=== PATIENT | female | born 1975 | race Caucasian/White ===

== ENCOUNTER 2018-04-10 22:50 | Emergency (ER) | payer OTHER ==
--- NOTE | 2018-04-10 23:33 | ERPHSYRPT ---
- History of Present Illness Time Seen by Provider: 04/10/18 22:50 Historian: patient Exam Limitations: no limitations Patient Subjective Stated Complaint: pt is alert and oriented. pt brought in via wheelchair. pt states that she was at a [employer] filling out an order form when her chest pain began in the center of her chest. pt denies any nausea, vomiting, lightheadedness, or dizziness. pt pedal pulses regular and strong. heart sounds regular. Triage Nursing Assessment: see above Physician History: MORBIDLY OBESE 42 Y/O WHITE FEMALE PRESENTS WITH CP THAT BEGAN SUDDENLY PRODUCE PRODUCTION TEAM MEMBER CENTRAL CHEST RADIATED STRAIGHT THROUGH TO BACK WITH ASSOCIATED COLD SWEATS. NOT BAD NOW ON ARRIVAL. NO ASA IN LAST 24 HOURS. DOES TAKE A BABY ASA DAILY. PT HAS A H/O PRINZMENTAL ANGINA Timing/Duration: today Activities at Onset: none Quality: sharpness, stabbing Location: central Chest Pain Radiation: back Associated Symptoms: hurts to breathe, diaphoresis Prior Chest Pain/Cardiac Workup: angina, cardiac cath Nitro Today/Relief: 0.4 mg x 4, provided at home, mild relief Aspirin Treatment Today: no aspirin today Allergies/Adverse Reactions: simvastatin [From Zocor] Adverse Reaction (Verified 04/10/18 23:03) Hx Tetanus, Diphtheria Vaccination/Date Given: No Immunizations Up to Date: Yes - Review of Systems Constitutional: No Symptoms Eyes: No Symptoms Ears, Nose, & Throat: No Symptoms Respiratory: Dyspnea, No Cough, No Stridor, No Wheezing Cardiac: Chest Pain, No Palpitations, No Syncope Abdominal/Gastrointestinal: No Symptoms, No Abdominal Pain, No Nausea, No Vomiting, No Diarrhea Genitourinary Symptoms: No Symptoms Musculoskeletal: No Symptoms Skin: No Symptoms Neurological: No Symptoms, No Dizziness, No Focal Weakness, No Gait Changes Psychological: No Symptoms, No Anxiety Endocrine: No Symptoms Hematologic/Lymphatic: No Symptoms All Other Systems: Reviewed and Negative - Past Medical History Pertinent Past Medical History: Yes Neurological History: Migraines, TIA ENT History: No Pertinent History Cardiac History: Congestive Heart Failure, Hypertension, Myocardial Infarction ( [place]), Other Respiratory History: COPD Endocrine Medical History: Diabetes Type II Musculoskeletal History: No Pertinent History GI Medical History: Hernia History: No Pertinent History Psycho-Social History: Anxiety, Depression Female Reproductive Disorders: No Pertinent History - Past Surgical History Past Surgical History: Yes Neuro Surgical History: No Pertinent History Cardiac: No Pertinent History Respiratory: No Pertinent History Gastrointestinal: Cholecystectomy Genitourinary: No Pertinent History Musculoskeletal: No Pertinent History Female Surgical History: Hysterectomy - Social History Smoking Status: Current every day smoker Drug Use: none - Female History Hx Now: No - Nursing Vital Signs Nursing Vital Signs: Initial Vital Signs Temperature 99.6 F 04/10/18 22:50 Pulse Rate 94 H 04/10/18 22:50 Respiratory Rate 18 04/10/18 22:50 Blood Pressure 129/85 04/10/18 22:50 O2 Sat by Pulse Oximetry 96 04/10/18 22:50 Pain Scale Pain Intensity 9 - Physical Exam General Appearance: mild distress, anxiety Eye Exam: PERRL/EOMI, eyes nml inspection Ears, Nose, Throat Exam: normal ENT inspection Neck Exam: normal inspection, non-tender, supple, full range of motion Respiratory Exam: normal breath sounds, chest tenderness, lungs clear, airway intact, No respiratory distress, No diminished breath sounds, No accessory muscle use, No wheezing, No stridor Cardiovascular Exam: regular rate/rhythm, normal heart sounds, normal peripheral pulses Gastrointestinal/Abdomen Exam: soft, normal bowel sounds, No tenderness, No distention, No mass, No guarding, No rebound Pelvic Exam: not done Rectal Exam: deferred Back Exam: normal inspection, normal range of motion Extremity Exam: normal inspection, normal range of motion, pelvis stable Skin Exam: normal color, warm Lymphatic Exam: adenopathy SpO2 Interpretation: normal SpO2: 96 Oxygen Delivery: Room Air - Course Nursing assessment & vital signs reviewed: Yes EKG Interpreted by Me: RATE, Sinus Rhythm, Non-specific ST Changes, Other ( PROBABLE FASCICULAR BLOCK) Ordered Tests: Active Orders 24 hr Category Date Time Status Manager Reporting STAT Care 04/10/18 23:02 Active EKG-ER Only STAT Care 04/10/18 23:01 Active IV Insertion STAT Care 04/10/18 23:01 Active Oxygen-ED Only NASAL CANNULA 2 lpm Care 04/10/18 23:01 Active CHEST 1 VIEW (PORTABLE) Stat Exams 04/10/18 23:45 Taken CBC W DIFF Stat Lab 04/10/18 23:20 Completed CMP Stat Lab 04/10/18 23:20 Completed TROPONIN Q3H Lab 04/10/18 23:20 Completed TROPONIN Q3H Lab 04/11/18 02:15 Ordered TROPONIN Q3H Lab 04/11/18 05:15 Ordered TROPONIN Q3H Lab 04/11/18 08:15 Ordered TROPONIN Q3H Lab 04/11/18 11:15 Ordered Medication Summary Discontinued Medications Generic Name Dose Route Start Last Admin Trade Name Schuyler PRN Reason Stop Dose Admin Levofloxacin 500 mg 04/11/18 00:57 Levofloxacin 250mg Tablet PO 04/11/18 00:58 STAT ONE Morphine Sulfate 4 mg 04/10/18 23:48 04/10/18 23:57 Morphine Sulfate 4 Mg Inj IV 04/10/18 23:49 4 mg STAT ONE Administration Morphine Sulfate Confirm 04/10/18 23:56 Morphine Sulfate 4 Mg Inj Administered 04/10/18 23:57 Dose 4 mg .ROUTE .[email or web address] ONE Lab/Rad Data: Laboratory Result Diagrams 04/10/18 23:20 04/10/18 23:20 Laboratory Results 04/10/18 04/10/18 04/10/18 Range/Units 23:20 23:20 23:20 WBC 18.3 H (4.0-10.5) K/mm3 RBC 4.57 (4.1-5.4) M/mm3 Hgb 11.0 L (12.0-16.0) gm/dl Hct 35.7 (35-47) % MCV 78.1 (78-100) fl MCH 24.0 L (26-32) pg MCHC 30.8 L (32-36) g/dl RDW 20.4 H (11.5-14.0) % Plt Count 335 (150-450) K/mm3 MPV 10.0 H (6-9.5) fl Gran % 73.2 H (36.0-66.0) % Eos # (Auto) 0.20 (0-0.5) Absolute Lymphs (auto) 3.62 (1.0-4.6) Absolute Monos (auto) 1.05 (0.0-1.3) Lymphocytes % 19.8 L (24.0-44.0) % Monocytes % 5.8 (0.0-12.0) % Eosinophils % 1.1 (0.00-5.0) % Basophils % 0.1 (0.0-0.4) % Absolute Granulocytes 13.37 H (1.4-6.9) Basophils # 0.02 (0-0.4) Sodium 139 (137-145) mmol/L Potassium 3.7 (3.5-5.1) mmol/L Chloride 104 (98-107) mmol/L Carbon Dioxide 25 (22-30) mmol/L Anion Gap 13.5 (5-15) MEQ/L BUN 9 (7-17) mg/dL Creatinine 0.65 (0.52-1.04) mg/dL Estimated GFR > 60.0 ML/MIN Glucose 219 H (74-106) mg/dL Calcium 9.5 (8.4-10.2) mg/dL Total Bilirubin 0.40 (0.2-1.3) mg/dL AST 17 (14-36) U/L ALT 26 (0-35) U/L Alkaline Phosphatase 71 (38-126) U/L Troponin I < 0.012 (0.000-0.034) ng/mL Serum Total Protein 6.6 (6.3-8.2) g/dL Albumin 3.9 (3.5-5.0) g/dL - Progress Progress: improved, re-examined Air Movement: good Progress Note: 04/10/18 23:39 RE EXAMINATION: PT IN NO DISTRESS. ANXIETY RELIEVED. CP BETTER. Blood Culture(s) Obtained: No Antibiotics given: Yes Counseled pt/family regarding: lab results, diagnosis, need for follow-up, rad results, smoking cessation - Departure Time of Disposition: 01:00 Departure Disposition: Home Clinical Impression: Chest pain, Leukocytosis Condition: Stable Critical Care Time: No Referrals: KEON SANTOOY MD [Primary Care Provider] - Additional Instructions: FOLLOW UP ON SATURDAY WITH PRIMARY DOCTOR FOR FURTHER MANAGEMENT. RETURN TO ER IF SYMPTOMS WORSEN Prescriptions: Levofloxacin [Levaquin 500 MG Tablet] 500 mg PO DAILY #7 tablet
[2018-04-10 23:48] LABS: BASOPHIL % 0.1 % (0.0-0.4); Basophil (Absolute #) 0.02 (0-0.4); Eosinophil % 1.1 % (0.00-5.0); Granulocyte Absolute (ANC) 13.37 (1.4-6.9); Granulocytes % 73.2 % (36.0-66.0); Hematocrit 35.7 % (35-47); Lymphocyte (Absolute #) 3.62 (1.0-4.6); Lymphocytes % 19.8 % (24.0-44.0); Mean Cell Volume 78.1 fl (78-100); Mean Corpuscular Hgb Concent. 30.8 g/dl (32-36); Monocyte (Absolute #) 1.05 (0.0-1.3); Monocytes % 5.8 % (0.0-12.0); Platelet Count 335 K/mm3 (150-450); Red Blood Count 4.57 M/mm3 (4.1-5.4); Red Cell Distribution Width 20.4 % (11.5-14.0); White Blood Count 18.3 K/mm3 (4.0-10.5)
[2018-04-10] MEDS ORDERED: MORPHINE SULFATE 4 MG INJ IV ONE (23:48)
[2018-04-10] MEDS ORDERED: MORPHINE SULFATE 4 MG INJ ONE (23:56)
[2018-04-11 00:13] LABS: ALBUMIN 3.9 g/dL (3.5-5.0); ALKALINE PHOSPHATASE 71 U/L (38-126); ANION GAP 13.5 MEQ/L (5-15); BLOOD UREA NITROGEN 9 mg/dL (7-17); CHLORIDE 104 mmol/L (98-107); Calcium 9.5 mg/dL (8.4-10.2); Carbon Dioxide 25 mmol/L (22-30); Creatinine 1 0.65 mg/dL (0.52-1.04); Glucose 219 mg/dL (74-106); Potassium 3.7 mmol/L (3.5-5.1); SGOT/AST 17 U/L (14-36); SGPT/ALT 26 U/L (0-35); SODIUM 139 mmol/L (137-145); Total Protein 6.6 g/dL (6.3-8.2)
[2018-04-11] MEDS ORDERED: Levofloxacin 250MG Tablet PO ONE (00:57)
[2018-04-11] MEDS ORDERED: Levofloxacin 500 MG Tablet ONE (01:03)
[2018-04-11] MEDS ORDERED: Levofloxacin 250MG Tablet ONE (01:05)
[2018-04-11 01:08] VITALS: BP 115/86; PULSE 86; O2SAT 97
--- NOTE | 2018-04-11 09:31 | XRAY ---
Indication: Chest pain. Comparison: None Portable apical lordotic chest demonstrates normal heart and lungs with left-sided dual-lead pacemaker. Bony thorax intact.
== END 2018-04-11 01:18 | disposition home or self-care (01) ==
LOC: ED 22:50
DX: R07.9 Chest pain, unspecified (principal); D72.829 Elevated white blood cell count, unspecified; F41.9 Anxiety disorder, unspecified; R61 Generalized hyperhidrosis
CPT/HCPCS: 36000; 36415; 71045; 80053; 84484; 85025; 93005; 93041; 96374; 99284; J2270; A9270-GY